=== PATIENT | male | born 1960 | race American Indian/Alaskan Native ===

== ENCOUNTER 2019-10-08 15:47 | Emergency (ER) | payer MEDICARE ==
--- NOTE | 2019-10-08 16:47 | Emergency Department Report ---
HPI - General Chief Complaint: Syncope Time Seen by Provider: 10/08/19 16:20 - HPI HPI: This is a 59-year-old -[place] male who presents to the emergency department via EMS from home after he passed out and was unconscious for about 1 minute. The patient was sitting in a chair getting a haircut and a shave from a family member and he recalls that it was very hot inside of the house. Patient says that he passed out and may have had a seizure but he did not fall to the floor as his family member caught him. Patient says that he does have a history of seizures and it has happened only 1 time previously and it was a "long time ago." He is unaware of what medication he takes for his seizures. He also has a past medical history of diabetes and hypertension. He did not take anything or receive anything for his symptoms prior to presentation. Accu-Chek in route was 205. At this time the patient has no complaints. ED Past Medical Hx - Past Medical History Previous Medical History?: Yes Hx Hypertension: Yes Hx Diabetes: Yes Hx Seizures: Yes - Social History Smoking Status: Never Smoker Substance Use Type: None ED Review of Systems ROS: Stated complaint: SYNCOPE Other details as noted in HPI Comment: All other systems reviewed and negative Constitutional: denies: chills, fever Eyes: denies: eye pain, vision change ENT: denies: ear pain, throat pain Respiratory: denies: cough, shortness of breath Cardiovascular: syncope. denies: chest pain Gastrointestinal: denies: abdominal pain, vomiting Genitourinary: denies: dysuria, discharge Musculoskeletal: denies: back pain, arthralgia Skin: denies: rash, lesions Neurological: denies: headache, numbness Physical Exam - Physical Exam Vital Signs: Vital Signs 10/08/19 10/08/19 15:50 16:05 Temperature 98.5 F Pulse Rate 82 Respiratory 18 17 Rate Blood Pressure 136/70 O2 Sat by Pulse 97 96 Oximetry Physical Exam: GENERAL: The patient is well-developed well-nourished. HENT: Normocephalic. Atraumatic. Patient has moist mucous membranes. EYES: Extraocular motions are intact. No nystagmus. NECK: Supple. Trachea is midline. CHEST/LUNGS: Clear to auscultation. There is no respiratory distress noted. HEART/CARDIOVASCULAR: Regular. There is no tachycardia. ABDOMEN: Abdomen is soft, nontender. Patient has normal bowel sounds. SKIN: Skin is warm and dry. NEURO: The patient is awake, alert, and oriented. The patient is cooperative. The patient has no focal neurologic deficits. Normal speech. Cranial nerves II through XII grossly intact. No pronator drift or dysmetria. MUSCULOSKELETAL: There is no tenderness or deformity. There is no limitation range of motion. ED Course Vital Signs 10/08/19 10/08/19 15:50 16:05 Temperature 98.5 F Pulse Rate 82 Respiratory 18 17 Rate Blood Pressure 136/70 O2 Sat by Pulse 97 96 Oximetry ED Medical Decision Making - Lab Data Result diagrams: 10/08/19 17:02 10/08/19 17:02 - EKG Data -: EKG Interpreted by Me EKG shows normal: sinus rhythm, axis, intervals, QRS complexes, ST-T waves Rate: normal - EKG Data When compared to previous EKG there are: previous EKG unavailable Interpretation: normal EKG - Radiology Data Radiology results: report reviewed CT head/brain wo con INDICATION / CLINICAL INFORMATION: 59 years Male; Syncope. TECHNIQUE: Routine CT head without contrast. All CT scans at this location are performed using CT dose reduction for ALARA by means of automated exposure control. Some motion artifact COMPARISON: None. FINDINGS: BRAIN / INTRACRANIAL CONTENTS: No acute hemorrhage, mass effect, midline shift, hydrocephalus, or acute, large territorial infarct. No chronic infarct or atrophy appreciated. There are mild areas of decreased attenuation in the white matter of the cerebral hemispheres. These are nonspecific findings and may be related to microangiopathy (hypertension, diabetes, athero sclerosis), given the patient's age. CRANIOCERVICAL JUNCTION: No significant abnormality. ORBITS: No significant abnormality of visualized orbits. SINUSES / MASTOIDS: No significant abnormality in the visualized paranasal sinuses or mastoid air cells. ADDITIONAL FINDINGS: None. IMPRESSION: 1. No focal mass, hemorrhage, hydrocephalus, or acute, large territorial infarct. - Medical Decision Making This patient presents to the emergency department after having a syncopal e pisode prior to presentation. The patient also stated that he might of had a seizure but it does not sound like he had any significant postictal. Nonetheless, since being in the emergency department and since my initial examination the patient has been awake, alert, oriented and in no acute distre ss. He does not have any focal, motor or sensory deficits and his cranial nerves are intact. CT scan of the head without contrast did not show any acute intracranial process. EKG did not show any signs of ST elevation [place]. Labs have been unremarkable including CBC, metabolic panel, troponin and thyroid level. His vital signs have been reassuring throughout his ED course. The patient was reevaluated multiple times over multiple hours and there is been no further syncopal episodes or seizure-like activity. He was seen ambulatory in the emergency department and both appears and feels stable. He has been instructed to follow-up with his PCP and to return to the ER with any worsening of his symptoms or with any acute distress. Critical Care Time: No Critical care attestation.: If time is entered above; I have spent that time in minutes in the direct care of this critically ill patient, excluding procedure time. ED Disposition Clinical Impression: Syncope Qualifiers: Syncope type: unspecified Qualified Code(s): R55 - Syncope and collapse Disposition: DC- TO HOME OR SELFCARE Is pt being admited?: No Condition: Stable Instructions: Syncope (ED) Additional Instructions: Please take all of your medications as previously prescribed. Return to the emergency department with any further episodes of passing out, or with any acute distress. Please follow-up with a primary care physician in the next few days. Referrals: SHERIF MACHADO MD [Staff Physician] - 2-3 Days [facility] [Provider Group] - 2-3 Days Time of Disposition: 18:56
[2019-10-08 17:23] LABS: Basophils # (Auto) 0.1 K/mm3 (0.0-0.1); Basophils % (Auto) 0.9 % (0.0-1.8); Eosinophils % (Auto) 0.4 % (0.0-4.3); Hematocrit 42.5 % (35.5-45.6); Hemoglobin 14.9 gm/dl (11.8-15.2); Lymphocytes # (Auto) 1.4 K/mm3 (1.2-5.4); Lymphocytes % (Auto) 19.4 % (13.4-35.0); Mean Corpuscular HGB Conc 35 % (32-34); Mean Corpuscular Volume 100 fl (84-94); Monocytes # (Auto) 0.4 K/mm3 (0.0-0.8); Monocytes % (Auto) 6.2 % (0.0-7.3); Platelet Count 204 K/mm3 (140-440); Red Blood Count 4.27 M/mm3 (3.65-5.03); Red Cell Distribution Width 12.6 % (13.2-15.2)
--- NOTE | 2019-10-08 17:31 | Cat Scan Report ---
CT head/brain wo con INDICATION / CLINICAL INFORMATION: 59 years Male; Syncope. TECHNIQUE: Routine CT head without contrast. All CT scans at this location are performed using CT dos e reduction for ALARA by means of automated exposure control. Some motion artifact COMPARISON: None. FINDINGS: BRAIN / INTRACRANIAL CONTENTS: No acute hemorrhage, mass effect, midline shift, hydrocephalus, or acu te, large territorial infarct. No chronic infarct or atrophy appreciated. There are mild areas of decreased attenuation in the white matter of the cerebral hemispheres. These are nonspecific findings and may be related to microangiopathy (hypertension, diabetes, atheroscleros is), given the patient's age. CRANIOCERVICAL JUNCTION: No significant abnormality. ORBITS: No significant abnormality of visualized orbits. SINUSES / MASTOIDS: No significant abnormality in the visualized paranasal sinuses or mastoid air srikanth ls. ADDITIONAL FINDINGS: None. IMPRESSION: 1. No focal mass, hemorrhage, hydrocephalus, or acute, large territorial infarct. Signer Name: Hunter German MD, III Signed: 10/08/2019 5:27 PM Workstation Name: [id number]
[2019-10-08 17:39] LABS: Alanine Aminotransferase 21 units/L (7-56); BUN/Creatinine Ratio 16; Blood Urea Nitrogen 16 mg/dL (9-20); Calcium 9.3 mg/dL (8.4-10.2); Hemolysis Index 21
[2019-10-08 19:13] VITALS: BP 138/78
== END 2019-10-08 19:13 | disposition home or self-care (01) ==
LOC: ED 15:47
DX: R55 Syncope and collapse (principal); I10 Essential (primary) hypertension; E11.9 Type 2 diabetes mellitus without complications; R56.9 Unspecified convulsions
CPT/HCPCS: 36415; 70450; 80053; 80320; 82962; 84443; 84484; 85025; 93005; G0480

== ENCOUNTER 2020-06-19 09:56 | Day surgery (SDC) | payer MEDICARE ==
[2020-06-19] MEDS ORDERED: HYDROmorphone 1 MG/1 ML INJ IV PRN ×2 (10:45)
[2020-06-19] MEDS ORDERED: ONDANSETRON 4 MG/2 ML INJ IV PRN (10:45)
[2020-06-19] MEDS ORDERED: LACTATED RINGERS 1,000 ML IV SCH (10:45)
--- NOTE | 2020-06-19 10:46 | Anesthesia Day of Surgery ---
Anesthesia Day of Surgery - Day of Surgery Patient Examined: Yes Patient H&P Reviewed: Yes Patient is NPO: Yes
--- NOTE | 2020-06-19 10:47 | Anesthesia Consultation ---
Anesthesia Consult and Med Hx Date of service: 06/19/20 - Airway Anesthetic Teeth Evaluation: Edentulous ROM Head & Neck: Adequate Mental/Hyoid Distance: Adequate Mallampati Class: Class II Intubation Access Assessment: Good - Pre-Operative Health Status ASA Pre-Surgery Classification: ASA2 Proposed Anesthetic Plan: General - Pulmonary Hx Smoking: No Hx Asthma: No COPD: No Hx Pneumonia: No Hx Sleep Apnea: No - Cardiovascular System Hx Hypertension: No Hx Heart Attack/AMI: No Hx Pacemaker: No Hx Internal Defibrillator: No Hx Heart Murmur: No - Central Nervous System Hx Seizures: No (??? 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
[2020-06-19] MEDS ORDERED: propofoL 200 MG/20 ML VIAL IV ONE (11:39)
[2020-06-19] MEDS ORDERED: HYDROmorphone 1 MG/1 ML INJ ONE (11:39)
[2020-06-19] MEDS ORDERED: LIDOCAINE MPF (2%) 20 MG/1 ML VIAL 5 ML ONE (11:40)
[2020-06-19] MEDS ORDERED: WATER FOR IRRIG STERILE 1,500 ML BOTTLE IR ONE (11:40)
[2020-06-19] MEDS ORDERED: WATER FOR IRRIG STERILE 2000 ML IR ONE (11:41)
[2020-06-19] MEDS ORDERED: ceFAZolin/Water 2 GM/20 ML 2 GM/20 ML SYRINGE IV ONE (12:19)
[2020-06-19] MEDS ORDERED: PHENYLEPHRINE/NS 1,000 MCG/10 ML SYRINGE (OR USE) IV ONE (12:36)
[2020-06-19] MEDS ORDERED: GENTAMICIN 40 MG/ML VIAL 2 ML ONE ×2 (12:53→12:57)
[2020-06-19] MEDS ORDERED: SODIUM CHLORIDE 0.9% 100 ML ONE (13:00)
[2020-06-19] MEDS ORDERED: ONDANSETRON 4 MG/2 ML INJ ONE (13:09)
--- NOTE | 2020-06-19 13:33 | Post Operative Note ---
Date of procedure: 06/19/20 Pre-op diagnosis: inc psa Post-op diagnosis: same Findings: bph Procedure: cyst pus bx Anesthesia: GETA Surgeon: DERRELL JACOB Pathology: list (prostate) Specimen disposition: to lab Condition: stable Disposition: PACU
--- NOTE | 2020-06-19 13:38 | Discharge Summary ---
Short Stay Discharge Plan Activity: other Weight Bearing Status: Full Weight Bearing Diet: low fat, low cholesterol, low salt Special Instructions: other (inc fluids ) Follow up with: ELEAZAR PARNELL [Other] - 7 Days DERRELL JACOB MD [Staff Physician] - 14 Days
--- NOTE | 2020-06-19 13:40 | Post Anesthesia Evaluation ---
- Post Anesthesia Evaluation Patient Participated: Yes Airway Patent: Yes Stable Respiratory Function: Yes Nausea/Vomiting: No Temp > 96.8F: Yes Pain Manageable: Yes Adequeate Hydration: Yes Anesthesia Complications: No Block Receding Appropriately: Not Applicable Patient on Ventilator: No
--- NOTE | 2020-06-19 14:19 | Operative Report ---
DATE OF SURGERY: 06/19/2020 PREOPERATIVE DIAGNOSES: Elevated PSA, mentally handicapped, some mild frequency. POSTOPERATIVE DIAGNOSES: Elevated PSA, mentally handicapped, some mild frequency. PROCEDURE: Flexible cystoscopy, transrectal prostate ultrasound-guided biopsy. SURGEON: Mati German MD ANESTHESIA: General. FINDINGS: This is a gentleman, who we could barely examine in the office with an elevated PSA of 20, irritative voiding symptoms and now presents for treatment. DESCRIPTION OF PROCEDURE: The patient was brought to the operation room and placed on the operating table. Following induction of anesthesia, placed in lithotomy position and prepped and draped in the usual sterile fashion. Flexible cystoscopy showed mild bilobar hypertrophy. Bladder was 1+ trabeculated. There were no lesions. A transrectal ultrasound after prepping with Betadine was carried out. Six biopsies of the right, 6 on the left. The patient tolerated the procedure well. No significant complication. The bladder was drained, brought to recovery in stable condition. TID: [id number] RECEIPT: [id number] FOSTER/JUAN
--- NOTE | 2020-06-19 14:36 | Ultrasound Report ---
ULTRASOUND TRANSRECTAL HISTORY: Elevated PSA, ultrasound guidance for prostate biopsy TECHNIQUE: Transrectal grayscale ultrasound. FINDINGS: Transrectal ultrasound guidance was provided by radiology during prostate biopsy by urology . The prostate gland measures 5.2 x 2.6 x 3.7 cm with volume of 25.6 cc. Please correlate with the pr ocedural report as needed. IMPRESSION: Successful prostate biopsy under transrectal ultrasound guidance. Signer Name: Arron Bender Jr, MD Signed: 06/19/2020 2:32 PM Workstation Name: [id number]
[2020-06-19 15:26] VITALS: BP 122/76
== END 2020-06-19 15:15 | disposition home or self-care (01) ==
LOC: OR 09:56
PROVIDERS: ATTEND Urology
DX: R97.20 Elevated prostate specific antigen [PSA] (principal); R35.0 Frequency of micturition; N40.0 Benign prostatic hyperplasia without lower urinary tract symptoms; E11.9 Type 2 diabetes mellitus without complications; F32.9 Major depressive disorder, single episode, unspecified; F41.9 Anxiety disorder, unspecified; Z98.890 Other specified postprocedural states; Z79.899 Other long term (current) drug therapy; Z79.84 Long term (current) use of oral hypoglycemic drugs
CPT/HCPCS: 52000; 55700; 76872; 82962; 88305; A4217; J0690; J1170; J1580; J2370; J2405; J2704; J7120

== ENCOUNTER 2020-07-26 09:02 | Outpatient (CLI) | payer MEDICARE ==
--- NOTE | 2020-07-26 16:32 | Nuclear Medicine Report ---
NM bone scan whole body INDICATION / CLINICAL INFORMATION: PROSTATE CANCER. TRACER: Technetium 99m MDP 25.3 mCi IV injection via the left antecubital fossa. COMPARISON: CT abdomen and pelvis same day. TECHNIQUE: Following injection of the above tracer and appropriate delay, whole body imaging was performed in th e anterior posterior projections. FINDINGS: Physiologic tracer uptake is noted. In addition, there is increased uptake at the shoulders, left AC joint, right patellofemoral joint and right foot. No uptake is present which is suspicious for metast atic disease. Normal renal uptake is present. IMPRESSION: 1. Multifocal degenerative change. 2. No uptake suspicious for metastatic disease. Signer Name: Carlo Ely MD Signed: 07/26/2020 4:28 PM Workstation Name: [id number]
--- NOTE | 2020-07-26 17:22 | Cat Scan Report ---
CT abdomen pelvis wo con INDICATION / CLINICAL INFORMATION: PROSTATE CANCER. TECHNIQUE: The abdomen and pelvis without contrast All CT scans at this location are performed using CT dose red uction for ALARA by means of automated exposure control. COMPARISON: None available. FINDINGS: Abdomen and pelvis: Some irregular density noted within the right lower lobe. The liver, spleen, pancreas adrenal glands and gallbladder are unremarkable within limits of the nonc ontrast technique. Exam slightly limited secondary to respiratory motion artifact No free air or free fluid. No bowel obstruction. No adenopathy within the abdomen or pelvis. Fat-cont aining bilateral inguinal hernias are present. Urinary bladder is unremarkable. The prostate is mildl y enlarged. Review of the osseous structures demonstrates no osteoblastic abnormality IMPRESSION: No convincing evidence of metastatic disease. Signer Name: Himanshu Rojas MD Signed: 07/26/2020 5:18 PM Workstation Name: [id number]
== END 2020-07-26 09:03 | disposition home or self-care (01) ==
LOC: NM 09:02
PROVIDERS: ATTEND Urology
DX: C61 Malignant neoplasm of prostate (principal); R97.20 Elevated prostate specific antigen [PSA]; N40.0 Benign prostatic hyperplasia without lower urinary tract symptoms; K40.90 Unilateral inguinal hernia, without obstruction or gangrene, not specified as recurrent
CPT/HCPCS: 74176; 78306; A9503